=== PATIENT | male | born 1940 | race Caucasian/White ===

== ENCOUNTER 2021-04-09 18:09 | Emergency (ER) | payer MEDICARE, OTHER ==
[~2021-04-09 18:09] MED LIST: CIPRO500 MG PO; KEFLEX500 MG PO; PYRIDIUM100 MG PO
[2021-04-09 18:52] LABS: BASOPHIL 0.6 % (0-2); EOSINOPHIL 3.5 % (0-7); HCT 41.1 % (42.0-52.0); HGB 13.7 g/dl (13.2-18.0); LYMPHOCYTE 15.7 % (15-48); MCH 31.2 pg (25.0-31.0); MCHC 33.3 g/dL (32.0-36.0); MCV 93.6 fL (78.0-100.0); MONOCYTE 10.3 % (0-12); MPV 9.9 fL (6.0-9.5); NEUTROPHIL 69.1 % (41-80); NRBC 0; PLT 160 K/uL (150-400); RBC 4.39 M/uL (4.70-6.00); RDW 13.2 % (11.5-14.0); WBC 7.2 K/uL (4.0-10.5)
[2021-04-09 19:05] LABS: INR 0.98 (0.9-1.2); PROTHROMBIN TIME 12.4 SECONDS (11.8-13.4); PTT 27.7 SECONDS (24.4-34.7)
[2021-04-09 19:09] LABS: ALBUMIN 3.5 g/dL (3.4-5.0); BILIRUBIN - TOTAL 0.3 mg/dL (0.2-1.0); BUN/CREAT RATIO (CALC) 14.2 RATIO; CREATININE 1.06 mg/dL (0.67-1.17); GLOBULIN (CALCULATION) 3.2 g/dL; POTASSIUM 4.1 mmol/L (3.5-5.1); TOTAL PROTEIN 6.7 g/dL (6.4-8.2)
== END 2021-04-09 20:05 | disposition other institution (70) ==
LOC: FER 18:09
PROVIDERS: Emergency Medicine
DX: M97.12XA Periprosthetic fracture around internal prosthetic left knee joint, initial encounter (principal); I10 Essential (primary) hypertension; E11.9 Type 2 diabetes mellitus without complications
CPT/HCPCS: 36415; 73552; 73560; 80053; 85025; 85610; 85730; 96374; 96375; J1170; J2405; J7030

== ENCOUNTER 2021-08-05 14:52 | Emergency (ER) | payer MEDICARE, OTHER ==
[2021-08-05 16:00] LABS: BASOPHIL 0.8 % (0-2); EOSINOPHIL 5.1 % (0-7); HCT 40.2 % (42.0-52.0); HGB 12.7 g/dl (13.2-18.0); LYMPHOCYTE 24.6 % (15-48); MCH 27.9 pg (25.0-31.0); MCHC 31.6 g/dL (32.0-36.0); MCV 88.4 fL (78.0-100.0); MONOCYTE 10.9 % (0-12); MPV 9.9 fL (6.0-9.5); NEUTROPHIL 58.1 % (41-80); NRBC 0; PLT 194 K/uL (150-400); RBC 4.55 M/uL (4.70-6.00); RDW 15.4 % (11.5-14.0); WBC 6.3 K/uL (4.0-10.5)
[2021-08-05 16:35] LABS: ALBUMIN 3.6 g/dL (3.4-5.0); BILIRUBIN - TOTAL 0.3 mg/dL (0.2-1.0); BUN/CREAT RATIO (CALC) 9.3 RATIO; CREATININE 1.18 mg/dL (0.67-1.17); GLOBULIN (CALCULATION) 3.5 g/dL; POTASSIUM 3.9 mmol/L (3.5-5.1); TOTAL PROTEIN 7.1 g/dL (6.4-8.2)
[2021-08-05 16:36] LABS: CKMB 1.2 ng/mL (0.0-3.6)
== END 2021-08-05 17:25 | disposition home or self-care (01) ==
LOC: FER 14:52
PROVIDERS: Emergency Medicine
DX: J44.9 Chronic obstructive pulmonary disease, unspecified (principal)
CPT/HCPCS: 36415; 71046; 80053; 82553; 83880; 84443; 84484; 85025; 93005